=== PATIENT | female | born 1980 | race Hispanic/Latino ===

== ENCOUNTER → 2017-11-25 | Outpatient (CLI) | payer OTHER | LOC: M RAD 09:59 | DX: N64.52 Nipple discharge (principal); N63.11 Unspecified lump in the right breast, upper outer quadrant; N63.21 Unspecified lump in the left breast, upper outer quadrant | CPT/HCPCS: 77066 ==

== ENCOUNTER 2017-12-17 09:40 | Day surgery (SDC) | payer OTHER ==
[~2017-12-17 09:40] MED LIST: PROPOFOL 200 MG/20 ML VIAL As Ordered
[2017-12-17] MEDS ORDERED: NS 1,000 ML IV (10:30)
[2017-12-17] MEDS ORDERED: LIDOCAINE 1% MDV 20ML VIAL As Ordered (15:12)
[2017-12-17] MEDS ORDERED: GLYCOPYRROLATE INJ 0.2 MG/ML 2 ML VIAL As Ordered (15:13)
== END 2017-12-17 11:34 | disposition home or self-care (01) ==
LOC: M OPP 09:40
DX: R10.13 Epigastric pain (principal); R12 Heartburn; K22.8 Other specified diseases of esophagus; K44.9 Diaphragmatic hernia without obstruction or gangrene; I10 Essential (primary) hypertension; Z87.11 Personal history of peptic ulcer disease; K21.9 Gastro-esophageal reflux disease without esophagitis; M54.9 Dorsalgia, unspecified; R51 Headache; R06.02 Shortness of breath; F17.210 Nicotine dependence, cigarettes, uncomplicated; Z88.8 Allergy status to other drugs, medicaments and biological substances; Z88.5 Allergy status to narcotic agent; Z79.899 Other long term (current) drug therapy
CPT/HCPCS: 43239

== ENCOUNTER 2017-12-21 14:51 | Observation (INO) | payer OTHER ==
[2017-12-21 17:13] LABS: BASO # 0.1 10^3/uL (0.0-0.2); BASO % 0.7 % (0.0-1.0); EOS # 0.2 10^3/uL (0.0-0.50); HEMATOCRIT 39.6 % (36.0-47.0); HEMOGLOBIN 13.3 g/dl (12.0-16.0); IMMATURE GRANULOCYTE % 0.4 % (0-3.0); LYMPH # 2.2 10^3/uL (1.5-4.5); LYMPH % 28.6 % (24.0-44.0); MEAN CORPUSCULAR HEMOGLOBIN 28.1 pg (27.0-33.0); MEAN CORPUSCULAR HGB CONC 33.6 g/dl (32.0-36.5); MEAN CORPUSCULAR VOLUME 83.5 fl (80.0-96.0); MONO # 0.6 10^3/uL (0.0-0.8); MONO % 7.2 % (0.0-5.0); NEUTROPHILS # 4.6 10^3/uL (1.8-7.7); NEUTROPHILS % 60.1 % (36.0-66.0); PLATELET COUNT, AUTOMATED 415 10^3/uL (150-450); RED BLOOD COUNT 4.74 10^6/uL (4.00-5.40); RED CELL DISTRIBUTION WIDTH 11.9 % (11.5-14.5); WHITE BLOOD COUNT 7.6 10^3/uL (4.0-10.0)
[2017-12-21 17:26] LABS: ALBUMIN 4.1 GM/DL (3.2-5.2); ALBUMIN/GLOBULIN RATIO 1.08 (1.00-1.93); ALKALINE PHOSPHATASE 118 U/L (45-117); ALT/SGPT 38 U/L (12-78); ANION GAP 8 MEQ/L (8-16); AST/SGOT 25 U/L (7-37); BILIRUBIN,DIRECT 0.1 MG/DL (0.0-0.2); BILIRUBIN,TOTAL 0.5 MG/DL (0.2-1.0); BLOOD UREA NITROGEN 5 MG/DL (7-18); CALCIUM LEVEL 8.8 MG/DL (8.5-10.1); CARBON DIOXIDE LEVEL 30 MEQ/L (21-32); CHLORIDE LEVEL 98 MEQ/L (98-107); CREATININE FOR GFR 0.65 MG/DL (0.55-1.30); GLOMERULAR FILTRATION RATE > 60.0 (>60); GLUCOSE, FASTING 85 MG/DL (70-100); LIPASE 255 U/L (73-393); POTASSIUM SERUM 3.9 MEQ/L (3.5-5.1); SODIUM LEVEL 136 MEQ/L (136-145); TOTAL PROTEIN 7.9 GM/DL (6.4-8.2)
[2017-12-21] MEDS ORDERED: ISOVUE-370 76% 100ML VIAL (Q9967) As Ordered (17:32)
[2017-12-21] MEDS: NS 1,000 ML IV ×2 (17:55→20:31)
[2017-12-21] MEDS: ONDANSETRON 4MG/2ML VIAL (J2405) IV (17:55)
[2017-12-21] MEDS: MORPHINE 2 MG/ML 1ML SYRINGE (J2270) IV ×2 (17:57→20:28)
[2017-12-21] MEDS: PANTOPRAZOLE 40MG INJ (PROTONIX) (C9113) IV (17:58)
[2017-12-21 18:04] LABS: KETONE, URINE AUTO RFX NEGATIVE (NEGATIVE); LEUKOCYTE ESTERASE UR AUTO RFX NEGATIVE (NEGATIVE); NITRITE, URINE AUTO RFX NEGATIVE (NEGATIVE); RBC, URINE AUTO RFX 2 /HPF (0-3); SPECIFIC GRAVITY UR AUTO RFX 1.003 (1.002-1.035); SQUAM EPITHELIAL CELL UR AURFX 0 /HPF (0-6); WBC, URINE AUTO RFX 1 /HPF (0-3)
[2017-12-21 18:37] LABS: CONTROL LINE HCG INT CTR LINE PRESENT; HCG, SERUM QUALITATIVE NEGATIVE (NEGATIVE)
[2017-12-21] MEDS ORDERED: LR 1,000 ML IV (23:00)
[2017-12-22] MEDS: MORPHINE 4 MG/ML 1ML VIAL (J2270) IV ×8 (00:01→23:26)
[2017-12-22] MEDS: LR 1,000 ML IV ×5 (00:02→23:26)
[2017-12-22] MEDS: SERTRALINE 100 MG TAB PO ×2 (01:58→20:04)
[2017-12-22] MEDS: EXCEDRIN MIGRAINE TABLET PO (01:58)
[2017-12-22] MEDS: clonazePAM 0.5 MG TAB PO ×3 (01:58→20:03)
[2017-12-22] MEDS: ONDANSETRON 4MG/2ML VIAL (J2405) IV (07:53)
[2017-12-22] MEDS: OMEPRAZOLE 20 MG CAP PO ×2 (07:54→20:04)
[2017-12-22 08:01] LABS: HEMATOCRIT 37.8 % (36.0-47.0); HEMOGLOBIN 12.9 g/dl (12.0-16.0); MEAN CORPUSCULAR HEMOGLOBIN 28.9 pg (27.0-33.0); MEAN CORPUSCULAR HGB CONC 34.1 g/dl (32.0-36.5); MEAN CORPUSCULAR VOLUME 84.6 fl (80.0-96.0); PLATELET COUNT, AUTOMATED 356 10^3/uL (150-450); RED BLOOD COUNT 4.47 10^6/uL (4.00-5.40); RED CELL DISTRIBUTION WIDTH 12.1 % (11.5-14.5); WHITE BLOOD COUNT 8.4 10^3/uL (4.0-10.0)
[2017-12-22] MEDS ORDERED: PROPOFOL 200 MG/20 ML VIAL As Ordered (12:00)
[2017-12-22] MEDS ORDERED: LIDOCAINE 2% INJ 100 MG/5 ML SDV (FOR ANES.) As Ordered (12:00)
[2017-12-22] MEDS ORDERED: ROCURONIUM BROMIDE 50 MG/5 ML VIAL As Ordered (12:00)
[2017-12-22] MEDS ORDERED: fentaNYL 100 MCG/2 ML INJECTION (J3010) As Ordered ×2 (12:01→13:43)
[2017-12-22] MEDS ORDERED: MIDAZOLAM INJ 2 MG/2 ML VIAL (J2250) As Ordered (12:01)
[2017-12-22] MEDS ORDERED: ePHEDrine INJ 50 MG/ML VIAL As Ordered (12:54)
[2017-12-22] MEDS ORDERED: METOCLOPRAMIDE INJ 10MG/2ML VIAL (J2765) As Ordered (12:57)
[2017-12-22] MEDS ORDERED: dexameTHASONE 4 MG/ML 1ML VIAL (J1100) As Ordered (12:57)
[2017-12-22] MEDS ORDERED: KETOROLAC 60 MG/2 ML VIAL (J1885) As Ordered (12:57)
[2017-12-22] MEDS ORDERED: ONDANSETRON 4MG/2ML VIAL (J2405) As Ordered (12:57)
[2017-12-22] MEDS ORDERED: PHENYLephrine HCL 500 MCG/5 ML (100MCG/ML) SYRINGE (J2370) As Ordered (12:59)
[2017-12-22] MEDS: LIDOCAINE W/EPINEPHRINE 1% 20ML VIAL As Ordered (13:00)
[2017-12-22] MEDS: BUPIVACAINE HCL 0.25% 10 ML VIAL As Ordered (13:00)
[2017-12-22] MEDS ORDERED: ACETAMINOPHEN TAB 650MG DOSE (2X325MG) PO (13:30)
[2017-12-22] MEDS: fentaNYL 100 MCG/2 ML INJECTION (J3010) IV (13:45)
[2017-12-22] MEDS ORDERED: ONDANSETRON 4MG/2ML VIAL (J2405) IV (14:00)
[2017-12-22] MEDS ORDERED: PERCOCET 5MG/325MG TAB PO (14:00)
[2017-12-22] MEDS ORDERED: METOCLOPRAMIDE INJ 10MG/2ML VIAL (J2765) IV (14:00)
[2017-12-22] MEDS ORDERED: HYDROmorphone HCL 1 MG/ML SYRINGE (J1170) IV (14:00)
[2017-12-22] MEDS: SENOKOT S TAB PO ×2 (14:32→20:04)
[2017-12-22] MEDS: HEPARIN SOD (PORCINE) 5000 UNITS/ML VIAL SC ×2 (15:31→23:26)
[2017-12-22] MEDS: KETOROLAC 30 MG/ML VIAL (J1885) IV ×2 (15:36→23:36)
[2017-12-22] MEDS: traZODone 50 MG TAB PO (20:10)
[2017-12-23] MEDS: MORPHINE 4 MG/ML 1ML VIAL (J2270) IV ×2 (01:43→04:34)
[2017-12-23] MEDS: KETOROLAC 30 MG/ML VIAL (J1885) IV ×3 (06:32→20:24)
[2017-12-23] MEDS: LR 1,000 ML IV (06:32)
[2017-12-23] MEDS: HEPARIN SOD (PORCINE) 5000 UNITS/ML VIAL SC ×3 (06:32→20:56)
[2017-12-23] MEDS: OMEPRAZOLE 20 MG CAP PO ×2 (06:38→19:45)
[2017-12-23] MEDS ORDERED: PANTOPRAZOLE 40MG INJ (PROTONIX) (C9113) IV (09:00)
[2017-12-23] MEDS: SENOKOT S TAB PO ×2 (09:30→20:57)
[2017-12-23] MEDS: clonazePAM 0.5 MG TAB PO ×2 (09:30→20:57)
[2017-12-23] MEDS: NORCO, ANEXSIA 5/325MG TABLET (HYDROcodone/ACETAMINOPHEN) PO ×3 (09:34→21:38)
[2017-12-23] MEDS: ONDANSETRON 4MG/2ML VIAL (J2405) IV (14:55)
[2017-12-23] MEDS: SIMETHICONE 80 MG CHEW TAB PO (18:13)
[2017-12-23] MEDS: SERTRALINE 100 MG TAB PO (20:57)
[2017-12-24] MEDS: traZODone 50 MG TAB PO (00:16)
[2017-12-24] MEDS: SIMETHICONE 80 MG CHEW TAB PO (00:16)
[2017-12-24] MEDS: HEPARIN SOD (PORCINE) 5000 UNITS/ML VIAL SC (06:03)
[2017-12-24] MEDS: NORCO, ANEXSIA 5/325MG TABLET (HYDROcodone/ACETAMINOPHEN) PO (06:03)
[2017-12-24] MEDS: OMEPRAZOLE 20 MG CAP PO (06:05)
[2017-12-24] MEDS: KETOROLAC 30 MG/ML VIAL (J1885) IV (07:01)
[2017-12-24] MEDS: SENOKOT S TAB PO (09:16)
[2017-12-24] MEDS: clonazePAM 0.5 MG TAB PO (09:16)
[2017-12-24] MEDS: ONDANSETRON 4MG/2ML VIAL (J2405) IV (09:20)
== END 2017-12-24 11:30 | disposition home or self-care (01) ==
LOC: M MS4PR 22:37 → M ED 14:51 → M ED INP 22:37 → M MS4PR 23:37
DX: K35.80 Unspecified acute appendicitis (principal); R10.31 Right lower quadrant pain; K21.9 Gastro-esophageal reflux disease without esophagitis; R11.0 Nausea; F32.9 Major depressive disorder, single episode, unspecified; F41.9 Anxiety disorder, unspecified; Z87.891 Personal history of nicotine dependence; Z79.899 Other long term (current) drug therapy
CPT/HCPCS: 44970

== ENCOUNTER 2018-01-09 18:50 | Emergency (ER) | payer OTHER ==
[2018-01-09 21:27] LABS: BASO % 0.3 % (0.0-1.0); EOS # 0.1 10^3/uL (0.0-0.50); EOS % 0.5 % (0.0-3.0); HEMATOCRIT 39.9 % (36.0-47.0); IMMATURE GRANULOCYTE % 0.3 % (0-3.0); LYMPH # 2.5 10^3/uL (1.5-4.5); LYMPH % 20.8 % (24.0-44.0); MEAN CORPUSCULAR HEMOGLOBIN 27.4 pg (27.0-33.0); MEAN CORPUSCULAR HGB CONC 32.6 g/dl (32.0-36.5); MEAN CORPUSCULAR VOLUME 84.2 fl (80.0-96.0); MONO # 0.8 10^3/uL (0.0-0.8); MONO % 6.4 % (0.0-5.0); NEUTROPHILS # 8.6 10^3/uL (1.8-7.7); NEUTROPHILS % 71.7 % (36.0-66.0); PLATELET COUNT, AUTOMATED 504 10^3/uL (150-450); RED BLOOD COUNT 4.74 10^6/uL (4.00-5.40); RED CELL DISTRIBUTION WIDTH 13.1 % (11.5-14.5)
[2018-01-09 21:50] LABS: ALBUMIN 4.2 GM/DL (3.2-5.2); ALBUMIN/GLOBULIN RATIO 1.11 (1.00-1.93); ALKALINE PHOSPHATASE 127 U/L (45-117); ALT/SGPT 266 U/L (12-78); ANION GAP 9 MEQ/L (8-16); AST/SGOT 164 U/L (7-37); BILIRUBIN,TOTAL 0.5 MG/DL (0.2-1.0); BLOOD UREA NITROGEN 9 MG/DL (7-18); CALCIUM LEVEL 9.6 MG/DL (8.5-10.1); CARBON DIOXIDE LEVEL 26 MEQ/L (21-32); CHLORIDE LEVEL 103 MEQ/L (98-107); CREATININE FOR GFR 0.69 MG/DL (0.55-1.30); GLOMERULAR FILTRATION RATE > 60.0 (>60); GLUCOSE, FASTING 93 MG/DL (70-100); POTASSIUM SERUM 4.3 MEQ/L (3.5-5.1); SODIUM LEVEL 138 MEQ/L (136-145)
[2018-01-09 21:55] LABS: KETONE, URINE AUTO RFX NEGATIVE (NEGATIVE); LEUKOCYTE ESTERASE UR AUTO RFX NEGATIVE (NEGATIVE); MUCUS, URINE RFX SMALL (NEGATIVE); NITRITE, URINE AUTO RFX NEGATIVE (NEGATIVE); RBC, URINE AUTO RFX 6 /HPF (0-3); SQUAM EPITHELIAL CELL UR AURFX 1 /HPF (0-6); WBC, URINE AUTO RFX 0 /HPF (0-3)
[2018-01-09] MEDS ORDERED: ISOVUE-370 76% 100ML VIAL (Q9967) As Ordered (22:39)
[2018-01-09 23:05] LABS: AMPHETAMINES LEVEL URINE NEGATIVE (NEGATIVE); BARBITURATES URINE NEGATIVE (NEGATIVE); BENZODIAZEPINES URINE POSITIVE (NEGATIVE); CANNABINOIDS URINE NEGATIVE (NEGATIVE); COCAINE METABOLITE URINE NEGATIVE (NEGATIVE); METHADONE URINE NEGATIVE (NEGATIVE); OPIATES URINE NEGATIVE (NEGATIVE); PHENCYCLIDINE URINE NEGATIVE (NEGATIVE)
[2018-01-11 08:06] LABS: UR ETG SCRN1 Negative ng/mL (Cutoff=500)
[2018-01-12 10:27] LABS: HEPATITIS B SURFACE ANTIGEN NEGATIVE (NEGATIVE)
[2018-01-12 10:52] LABS: HEPATITIS C VIRUS ABY INDEX < 0.0 INDEX (<0.8)
[2018-01-12 10:53] LABS: HEPATITIS B CORE ANTIBODY IGM NEGATIVE (NEGATIVE)
[2018-01-12 10:55] LABS: HEPATITIS A ANTIBODY IGM NEGATIVE (NEGATIVE)
== END 2018-01-10 00:48 | disposition home or self-care (01) ==
LOC: M ED 01-10 00:48
DX: R74.8 Abnormal levels of other serum enzymes (principal); F41.9 Anxiety disorder, unspecified; F43.10 Post-traumatic stress disorder, unspecified; F10.20 Alcohol dependence, uncomplicated; N83.201 Unspecified ovarian cyst, right side; Z79.899 Other long term (current) drug therapy; Z88.5 Allergy status to narcotic agent
CPT/HCPCS: Q9967

== ENCOUNTER → 2018-01-29 | Outpatient (CLI) | payer OTHER | LOC: M RAD 08:42 | DX: K80.00 Calculus of gallbladder with acute cholecystitis without obstruction (principal) | CPT/HCPCS: J2805 ==

== ENCOUNTER 2018-02-19 18:00 | Inpatient (IN) | payer OTHER ==
[2018-02-19 18:56] LABS: HEMATOCRIT 37.2 % (36.0-47.0); HEMOGLOBIN 12.3 g/dl (12.0-15.5); MEAN CORPUSCULAR HEMOGLOBIN 28.1 pg (27.0-33.0); MEAN CORPUSCULAR HGB CONC 33.1 g/dl (32.0-36.5); MEAN CORPUSCULAR VOLUME 84.9 fl (80.0-96.0); PLATELET COUNT, AUTOMATED 411 10^3/uL (150-450); RED BLOOD COUNT 4.38 10^6/uL (4.00-5.40); WHITE BLOOD COUNT 9.9 10^3/uL (4.0-10.0)
[2018-02-19 19:13] LABS: CONTROL LINE HCG INT CTR LINE PRESENT; HCG, SERUM QUALITATIVE NEGATIVE (NEGATIVE)
[2018-02-19 19:21] LABS: AMPHETAMINES LEVEL URINE NEGATIVE (NEGATIVE); BARBITURATES URINE NEGATIVE (NEGATIVE); BENZODIAZEPINES URINE NEGATIVE (NEGATIVE); CANNABINOIDS URINE NEGATIVE (NEGATIVE); COCAINE METABOLITE URINE NEGATIVE (NEGATIVE); METHADONE URINE NEGATIVE (NEGATIVE); OPIATES URINE NEGATIVE (NEGATIVE); PHENCYCLIDINE URINE NEGATIVE (NEGATIVE)
[2018-02-19 19:28] LABS: ACETAMINOPHEN LEVEL < 2.0 UG/ML (10.0-30.0); ALBUMIN/GLOBULIN RATIO 1.03 (1.00-1.93); ALKALINE PHOSPHATASE 167 U/L (45-117); ALT/SGPT 86 U/L (12-78); ANION GAP 6 MEQ/L (8-16); AST/SGOT 29 U/L (7-37); BILIRUBIN,DIRECT 0.1 MG/DL (0.0-0.2); BILIRUBIN,TOTAL 0.3 MG/DL (0.2-1.0); BLOOD UREA NITROGEN 9 MG/DL (7-18); CARBON DIOXIDE LEVEL 29 MEQ/L (21-32); CHLORIDE LEVEL 104 MEQ/L (98-107); CREATININE FOR GFR 0.66 MG/DL (0.55-1.30); ETHYL ALCOHOL (ETHANOL) < 0.003 % (0.000-0.010); GLOMERULAR FILTRATION RATE > 60.0 (>60); GLUCOSE, FASTING 88 MG/DL (70-100); SALICYLATE LEVEL < 1.7 MG/DL (5.0-30.0); SODIUM LEVEL 139 MEQ/L (136-145); THYROID STIMULATING HORMONE 0.996 uIU/ML (0.358-3.740); TOTAL PROTEIN 7.9 GM/DL (6.4-8.2)
[2018-02-19] MEDS ORDERED: MOM 30ML SUSPENSION UDC PO (21:00)
[2018-02-19] MEDS ORDERED: ACETAMINOPHEN TAB 650MG DOSE (2X325MG) PO (21:00)
[2018-02-19] MEDS: traZODone 50 MG TAB PO ×2 (21:56)
[2018-02-20] MEDS: MAALOX 30 ML SUSP *UDC PO (08:08)
[2018-02-20] MEDS: OMEPRAZOLE 20 MG CAP PO ×2 (10:17→20:28)
[2018-02-20] MEDS: BACLOFEN 10 MG TAB PO ×2 (10:18→21:29)
[2018-02-20] MEDS: clonazePAM 0.5 MG TAB PO ×2 (12:59→21:29)
[2018-02-20] MEDS: DICYCLOMINE 10 MG CAP PO ×2 (12:59→21:29)
[2018-02-20] MEDS: MECLIZINE 12.5 MG TAB PO ×2 (18:50→21:31)
[2018-02-20] MEDS: PRAZOSIN 1 MG CAP PO (21:29)
[2018-02-20] MEDS: traZODone 100 MG TAB PO (21:31)
[2018-02-21] MEDS: clonazePAM 0.5 MG TAB PO ×2 (08:28→17:02)
[2018-02-21] MEDS: DICYCLOMINE 10 MG CAP PO (08:28)
[2018-02-21] MEDS: BACLOFEN 10 MG TAB PO (08:28)
[2018-02-21] MEDS: OMEPRAZOLE 20 MG CAP PO ×2 (08:28→20:34)
[2018-02-21] MEDS: MECLIZINE 12.5 MG TAB PO (08:28)
[2018-02-21] MEDS: PRAZOSIN 1 MG CAP PO (20:34)
[2018-02-21] MEDS: traZODone 100 MG TAB PO (20:48)
[2018-02-22] MEDS: clonazePAM 0.5 MG TAB PO ×3 (01:49→18:05)
[2018-02-22] MEDS: OMEPRAZOLE 20 MG CAP PO ×2 (08:19→20:34)
[2018-02-22] MEDS: MECLIZINE 12.5 MG TAB PO ×2 (08:19→18:05)
[2018-02-22] MEDS: DICYCLOMINE 10 MG CAP PO (08:20)
[2018-02-22] MEDS: BACLOFEN 10 MG TAB PO ×2 (09:54→18:05)
[2018-02-22] MEDS: PRAZOSIN 1 MG CAP PO (20:34)
[2018-02-22] MEDS: traZODone 100 MG TAB PO (20:34)
[2018-02-23] MEDS: clonazePAM 0.5 MG TAB PO ×3 (05:28→21:43)
[2018-02-23] MEDS: BACLOFEN 10 MG TAB PO (08:54)
[2018-02-23] MEDS: MECLIZINE 12.5 MG TAB PO (08:54)
[2018-02-23] MEDS: DICYCLOMINE 10 MG CAP PO (08:54)
[2018-02-23] MEDS: OMEPRAZOLE 20 MG CAP PO ×2 (08:54→20:31)
[2018-02-23 10:48] LABS: ALBUMIN 3.3 GM/DL (3.2-5.2); ALBUMIN/GLOBULIN RATIO 0.97 (1.00-1.93); ALKALINE PHOSPHATASE 134 U/L (45-117); ALT/SGPT 51 U/L (12-78); ANION GAP 5 MEQ/L (8-16); AST/SGOT 26 U/L (7-37); BILIRUBIN,TOTAL 0.3 MG/DL (0.2-1.0); BLOOD UREA NITROGEN 9 MG/DL (7-18); CALCIUM LEVEL 8.7 MG/DL (8.5-10.1); CARBON DIOXIDE LEVEL 27 MEQ/L (21-32); CHLORIDE LEVEL 110 MEQ/L (98-107); CREATININE FOR GFR 0.57 MG/DL (0.55-1.30); GLOMERULAR FILTRATION RATE > 60.0 (>60); GLUCOSE, FASTING 105 MG/DL (70-100); POTASSIUM SERUM 4.4 MEQ/L (3.5-5.1); SODIUM LEVEL 142 MEQ/L (136-145); TOTAL PROTEIN 6.7 GM/DL (6.4-8.2)
[2018-02-23] MEDS: traZODone 50 MG TAB PO (20:31)
[2018-02-23] MEDS: PRAZOSIN 1 MG CAP PO (20:31)
[2018-02-24] MEDS: hydrOXYzine 50 MG TAB PO (02:24)
[2018-02-24] MEDS: clonazePAM 0.5 MG TAB PO ×2 (08:29→20:06)
[2018-02-24] MEDS: MECLIZINE 12.5 MG TAB PO ×2 (08:29→20:06)
[2018-02-24] MEDS: BACLOFEN 10 MG TAB PO ×2 (08:29→20:05)
[2018-02-24] MEDS: OMEPRAZOLE 20 MG CAP PO ×2 (08:29→20:05)
[2018-02-24] MEDS: DICYCLOMINE 10 MG CAP PO (08:29)
[2018-02-24] MEDS: traZODone 50 MG TAB PO (20:06)
[2018-02-24] MEDS: PRAZOSIN 1 MG CAP PO (20:06)
[2018-02-25] MEDS: OMEPRAZOLE 20 MG CAP PO ×2 (08:08→20:15)
[2018-02-25] MEDS: BACLOFEN 10 MG TAB PO (08:11)
[2018-02-25] MEDS: clonazePAM 0.5 MG TAB PO ×4 (08:12→20:15)
[2018-02-25] MEDS: MECLIZINE 12.5 MG TAB PO (08:12)
[2018-02-25] MEDS: PRAZOSIN 1 MG CAP PO (20:14)
[2018-02-25] MEDS: traZODone 50 MG TAB PO (20:14)
[2018-02-26] MEDS: BACLOFEN 10 MG TAB PO (08:17)
[2018-02-26] MEDS: OMEPRAZOLE 20 MG CAP PO (08:17)
[2018-02-26] MEDS: clonazePAM 0.5 MG TAB PO (08:18)
[2018-02-26] MEDS: MECLIZINE 12.5 MG TAB PO (08:18)
== END 2018-02-26 09:05 | DRG 882 ==
LOC: M ED 18:00 → M PSY 02-20 20:00 → M ED INP 20:51 → M PSY 23:55
DX: F43.10 Post-traumatic stress disorder, unspecified (principal); R45.851 Suicidal ideations; F32.9 Major depressive disorder, single episode, unspecified; R74.0 Nonspecific elevation of levels of transaminase and lactic acid dehydrogenase [LDH]; K80.20 Calculus of gallbladder without cholecystitis without obstruction; M54.9 Dorsalgia, unspecified; F41.9 Anxiety disorder, unspecified; K21.9 Gastro-esophageal reflux disease without esophagitis; F10.21 Alcohol dependence, in remission; Z88.8 Allergy status to other drugs, medicaments and biological substances; Z88.5 Allergy status to narcotic agent; Z79.899 Other long term (current) drug therapy

== ENCOUNTER 2018-08-06 00:48 | Emergency (ER) | payer OTHER ==
[2018-08-06 02:29] LABS: HEMATOCRIT 41.3 % (36.0-47.0); HEMOGLOBIN 13.5 g/dl (12.0-15.5); MEAN CORPUSCULAR HEMOGLOBIN 27.6 pg (27.0-33.0); MEAN CORPUSCULAR HGB CONC 32.7 g/dl (32.0-36.5); MEAN CORPUSCULAR VOLUME 84.5 fl (80.0-96.0); PLATELET COUNT, AUTOMATED 406 10^3/uL (150-450); RED BLOOD COUNT 4.89 10^6/uL (4.00-5.40); RED CELL DISTRIBUTION WIDTH 13.6 % (11.5-14.5); WHITE BLOOD COUNT 11.3 10^3/uL (4.0-10.0)
[2018-08-06 02:49] LABS: CONTROL LINE HCG INT CTR LINE PRESENT; HCG, SERUM QUALITATIVE NEGATIVE (NEGATIVE)
[2018-08-06 02:53] LABS: AMPHETAMINES LEVEL URINE NEGATIVE (NEGATIVE); BARBITURATES URINE NEGATIVE (NEGATIVE); BENZODIAZEPINES URINE NEGATIVE (NEGATIVE); CANNABINOIDS URINE NEGATIVE (NEGATIVE); COCAINE METABOLITE URINE NEGATIVE (NEGATIVE); METHADONE URINE NEGATIVE (NEGATIVE); OPIATES URINE NEGATIVE (NEGATIVE); PHENCYCLIDINE URINE NEGATIVE (NEGATIVE)
[2018-08-06 03:05] LABS: ALBUMIN 4.1 GM/DL (3.2-5.2); ALKALINE PHOSPHATASE 106 U/L (45-117); ALT/SGPT 21 U/L (12-78); ANION GAP 6 MEQ/L (8-16); AST/SGOT 13 U/L (7-37); BILIRUBIN,DIRECT < 0.1 MG/DL (0.0-0.2); BILIRUBIN,TOTAL 0.2 MG/DL (0.2-1.0); BLOOD UREA NITROGEN 6 MG/DL (7-18); CALCIUM LEVEL 8.8 MG/DL (8.5-10.1); CARBON DIOXIDE LEVEL 29 MEQ/L (21-32); CHLORIDE LEVEL 107 MEQ/L (98-107); CREATININE FOR GFR 0.73 MG/DL (0.55-1.30); ETHYL ALCOHOL (ETHANOL) 0.003 % (0.000-0.010); GLOMERULAR FILTRATION RATE > 60.0 (>60); GLUCOSE, FASTING 79 MG/DL (70-100); POTASSIUM SERUM 3.8 MEQ/L (3.5-5.1); SALICYLATE LEVEL 2.4 MG/DL (5.0-30.0); SODIUM LEVEL 142 MEQ/L (136-145); THYROID STIMULATING HORMONE 0.681 uIU/ML (0.358-3.740); TOTAL PROTEIN 8.2 GM/DL (6.4-8.2)
[2018-08-06 03:06] LABS: ACETAMINOPHEN LEVEL < 2.0 UG/ML (10.0-30.0)
[2018-08-06] MEDS: GABAPENTIN 300 MG CAP PO (08:09)
[2018-08-06] MEDS: OMEPRAZOLE 20 MG CAP PO (08:09)
[2018-08-06] MEDS: METAXALONE 800 MG TABLET PO (08:09)
== END 2018-08-06 11:03 ==
LOC: M ED 00:48
DX: R45.851 Suicidal ideations (principal); F33.9 Major depressive disorder, recurrent, unspecified; K21.9 Gastro-esophageal reflux disease without esophagitis; Z79.899 Other long term (current) drug therapy; Z88.5 Allergy status to narcotic agent; Z88.8 Allergy status to other drugs, medicaments and biological substances
CPT/HCPCS: G0480

== ENCOUNTER → 2019-02-10 | Outpatient (REF) | payer OTHER ==
[~2019-02-10] MED LIST changes: +BACL10TA2 PO; +BENT10CA PO; +BUPR15TA PO; +CEFD1CAP8 PO; +CLON0.5T8 PO; +DRAM50CH4 PO; +HYDR-3363 PO; +HYDR-3715 PO; +HYDR-643 PO; +META400T PO; +MINI1CAP PO; +NEUR300C PO; +OMEP20CA3 PO; +ORSYTAB PO; +PRAZ5CAP PO; -PROPOFOL 200 MG/20 ML VIAL As Ordered; +RANI150C PO; +REFR0.1D OU; +SERT-138 PO; +TRAZ-160 PO; +TRAZ1TAB14 PO
[2019-02-10 17:59] LABS: HCG, SERUM QUALITATIVE NEGATIVE (NEGATIVE)
[2019-02-10 18:01] LABS: BASO % 0.4 % (0.0-1.0); EOS # 0.4 10^3/uL (0.0-0.50); EOS % 4.8 % (0.0-3.0); HEMOGLOBIN 12.3 g/dl (12.0-15.5); LYMPH % 26.5 % (24.0-44.0); MEAN CORPUSCULAR HEMOGLOBIN 28.1 pg (27.0-33.0); MEAN CORPUSCULAR HGB CONC 31.5 g/dl (32.0-36.5); MONO # 0.6 10^3/uL (0.0-0.8); MONO % 8.4 % (0.0-5.0); NEUTROPHILS # 4.6 10^3/uL (1.8-7.7); NEUTROPHILS % 59.6 % (36.0-66.0); PLATELET COUNT, AUTOMATED 390 10^3/uL (150-450); RED BLOOD COUNT 4.38 10^6/uL (4.00-5.40); WHITE BLOOD COUNT 7.6 10^3/uL (4.0-10.0)
[2019-02-10 20:26] LABS: ALBUMIN 3.8 GM/DL (3.2-5.2); ALT/SGPT 26 U/L (12-78); AMYLASE 86 U/L (25-115); BILIRUBIN,TOTAL 0.3 MG/DL (0.2-1.0); BLOOD UREA NITROGEN 10 MG/DL (7-18); CALCIUM LEVEL 8.6 MG/DL (8.5-10.1); CARBON DIOXIDE LEVEL 25 MEQ/L (21-32); CHLORIDE LEVEL 107 MEQ/L (98-107); GLOMERULAR FILTRATION RATE > 60.0 (>60); GLUCOSE, FASTING 89 MG/DL (70-100); LIPASE 333 U/L (73-393); POTASSIUM SERUM 4.2 MEQ/L (3.5-5.1); SODIUM LEVEL 138 MEQ/L (136-145); TOTAL PROTEIN 6.9 GM/DL (6.4-8.2)
[2019-02-11 10:59] LABS: VITAMIN B12 LEVEL 1175 PG/ML (247-911)
== END ==
LOC: M SFHCLERA 10:57
PROVIDERS: ATTEND Physician Assistant Medical
DX: R11.0 Nausea (principal)
CPT/HCPCS: 80053; 82150; 82607; 83690; 84443; 84703; 85025; G0463